=== PATIENT | male | born 1995 | race Caucasian/White ===

== ENCOUNTER 2018-05-14 09:11 | Emergency (ER) | payer MEDICAID, SELFPAY ==
[2018-05-14 09:53] VITALS: BP 123/76; PULSE 96; RESP 16; TEMP 36.7; O2SAT 98
--- NOTE | 2018-05-14 10:30 | W.ED.GENAD ---
Discharge Plan Disposition Patient Disposition: HOME Condition: Fair Discharge Details Chief Complaint: Sorethroat Clinical Impression: URI (upper respiratory infection), Pharyngitis Primary Care Provider: Phoenix Morrissey ED Provider: Maricel Puente Home Meds and New Rx's Prescriptions: Continue polyethylene glycol 3350 255 GM powder 8.5 gm PO DAILY Qty: 255 RF: 2 melatonin 3 MG tablet 4.5 mg PO HS Qty: 90 RF: 1 loratadine 10 MG tablet 10 mg PO DAILY Qty: 90 RF: 1 lamotrigine 100 MG tablet 100 mg PO BID Qty: 180 RF: 4 Discharge Instructions Instructions: Pharyngitis (ED), Upper Respiratory Infection (ED) Additional Instructions: Encourage hydration. Tylenol and/or ibuprofen as needed for discomfort. You may try lozenges or warm water with honey to help with sore throat. If you develop difficulty breathing, shortness of breath, inability to stay hydrated or other new/worsening symptoms please seek care urgently once again. Please follow-up with primary care if not resolved in 1 week. Referrals: Phoenix Morrissey [Primary Care Provider] - Discharge Data Discharge Date/Time-TO BE ENTERED AT DEPARTURE: 05/14/18 10:44 Medical Decision Making Patient is a 22-year-old male, accompanied by caregiver, with chief complaint of sore throat times 2 days. Patient also endorsing rhinorrhea and cough. States the cough has been dry. Denies any shortness of breath or difficulty breathing. Patient appears nontoxic. Posterior oropharynx is significant for some mild erythema. No swelling or exudate. Uvula is midline, no trismus. No swelling of the tongue. Vital signs unremarkable. Patient reports has been afebrile at home. He does appear dry on exam. Patient caregiver reported that he does not drink much fluids during the day. Caregiver was requesting IV bolus while here. However, she reports that he has baseline level of dehydration for the past several years as he does not hydrate frequently. Did not feel at this point that hydrate the patient for intravenous measures is appropriate. I advised rather really trying to encourage the oral hydration wound discussed the importance of this in depth with the patient. Rapid strep tesing performed by nursing staff. This is found to be negative. Discussed these results with the patient and caregiver. He has not had anything as of yet for discomfort. Advised Tylenol and ibuprofen. He was given a dose of ibuprofen while here. Advised that his illness sounds to be viral in nature. Again, encourage hydration. We discussed [id number] home remedies that may help with symptomatic management. We discussed new/worsening symptoms when to seek care urgently once again. Advise follow-up with primary care if not improving the next week. All other questions or concerns were addressed and he is in agreement with this plan HPI General Mode of arrival: ambulatory. Date/Time Provider Initiated Documentation: 05/14/18 10:12. Limitations to Documentation: no limitations. Information obtained by: patient and family (accompanied by healthcare representative). History of Present Illness 22 year old M presents to the emergency department with the chief complaint of sore throat, described as moderate, with intensity rated at 5. Quality is described as aching, and is localized to the mouth. Patient reports no radiation. Patient started experiencing this day(s) (2) and it has been constant. No relieving factors improve symptom(s), Other factors that worsen symptoms (reports pain is worse with swallowing) . Patient notes cough; denies chest pain, fever/chills, headaches, loss of appetite, malaise, nausea/vomiting, rash and shortness of breath. Patient did receive the following treatments prior to arrival, none Related Data Home Medications Medication Instructions Recorded Confirmed polyethylene glycol 3350 8.5 gm PO DAILY #255 gm 01/29/16 05/14/18 melatonin 4.5 mg PO HS #90 tab 07/13/16 05/14/18 loratadine 10 mg PO DAILY #90 tab-cap 09/30/16 05/14/18 lamotrigine 100 mg PO BID #180 tab-cap 12/12/17 05/14/18 Previous Rx's Medication Instructions Recorded lamotrigine 100 mg PO BID #180 tab-cap 12/12/17 Allergies Allergy/AdvReac Type Severity Reaction Status Date / Time bupropion HCl Allergy Severe Unverified 05/14/18 10:01 [From Wellbutrin] shellfish derived Allergy Unverified 05/14/18 10:01 lactose AdvReac diarrhea Unverified 05/14/18 10:01 General Stated Complaint: Sorethroat SEBAS: 4 Review of Systems Constitutional Reports as per HPI Eyes Denies eye discharge and Denies irritation ENT Reports as per HPI, Denies dental pain, Denies vertigo, Denies ear discharge, Denies otalgia, Denies facial pain, Reports nasal congestion, Reports nasal discharge, Denies sinus pain, Denies sinus pressure, Reports sore throat, Denies throat swelling and Denies tongue swelling Cardiovascular Denies chest pain, Denies dyspnea and Denies dyspnea on exertion Respiratory Reports as per HPI, Reports cough (dry cough), Denies pain with cough, Denies dyspnea and Denies dyspnea on exertion Gastrointestinal Denies abdominal pain, Denies change in stool character, Denies nausea and Denies vomiting Integumentary/Breasts Denies rash Neurologic Denies vertigo Allergic/Immunologic Denies throat swelling and Denies tongue swelling [facility] Social History Smoking/Tobacco Use Status: Never Surgical History Circumcision Tooth extraction gynecomastia repair Exam Const General: cooperative, healthy appearing, comfortable, no acute distress, well developed and well groomed Nutritional Appearance: average body habitus and well nourished Orientation: alert and awake [facility] Head: normal to inspection, normocephalic and atraumatic Ears: hearing grossly normal bilaterally, external ears normal and TM's normal bilaterally General nose exam: external nose normal and nares normal Face and sinus: normal facial exam, sinuses nontender and face symmetric Mouth: oral mucosae normal, lip normal, tongue normal, oropharynx abnormals (patient appears dry on exam), no audible dysphonia and no trismus Throat: posterior oropharynx abnormal (mildly erythematous), tonsils normal, uvula midline, uvula not displaced and no uvular edema Eyes General: appearance normal, both eyes and all related structures Neck Neck: normal visual inspection, full ROM, no lymphadenopathy, no meningeal signs, trachea midline and supple Resp Effort & Inspection: normal respiratory effort, able to speak in complete sentences, no audible wheezes, no cough and no respiratory distress Auscultation: clear to auscultation bilaterally, no rales, no rhonchi and no wheezes Cardio Rate: regular rate Rhythm: regular rhythm Heart Sounds: S1 normal and S2 normal Skin General skin exam: no rashes or lesions noted Neuro General: alert and awake Cognition: normal cognition Speech: speech normal Gait: normal gait Psych Appearance: grossly normal and well kempt Mental Status: mental status grossly normal Speech and Movement: speech and movement normal Course Vital Signs Temperature 36.7 C 05/14/18 09:53 Pulse 96 H 05/14/18 09:53 Respiratory Rate 16 05/14/18 09:53 Blood Pressure 123/76 05/14/18 09:53 Pulse Oximetry 98 05/14/18 09:53 Temperature 36.7 C 05/14/18 09:53 Temperature Source Temporal Artery Scan 05/14/18 09:53 Pulse 96 H 05/14/18 09:53 Respiratory Rate 16 05/14/18 09:53 Respiratory Effort Non-Labored 05/14/18 09:57 Blood Pressure 123/76 05/14/18 09:53 Blood Pressure Position Sitting 05/14/18 09:53 Pulse Oximetry 98 05/14/18 09:53 Oxygen Delivery Method Room Air 05/14/18 09:53 Oxygen Flow Rate 0 05/14/18 09:53 Pain Level 5 05/14/18 09:53 Lab/Test Results Lab/Test Results: 05/14/18 09:50 Pharynx Streptococcus Screen (KEE) - Pending POC Strep Test-STORMY(Rapid) Start: 05/14/18 09:52 Freq: .Rapid Strep Test Status: Active Protocol: Document 05/14/18 10:00 GUILLERMO (Rec: 05/14/18 10:00 [facility] [place] [id number]) Strep test-STORMY(Rapid)-POC POC-Strep test-STORMY (Rapid) Negative POC-Strep test-STORMY (Rapid) Negative
[2018-05-14] MEDS: Ibuprofen 600 MG TAB PO (10:39)
--- NOTE | 2018-05-14 10:45 | ED.GENADUL_ITS ---
Discharge Plan Disposition Patient Disposition: HOME Condition: Fair Discharge Details Chief Complaint: Sorethroat Clinical Impression: URI (upper respiratory infection), Pharyngitis Primary Care Provider: Phoenix Morrissey ED Provider: Maricel Puente Home Meds and New Rx's Prescriptions: Continue polyethylene glycol 3350 255 GM powder 8.5 gm PO DAILY Qty: 255 RF: 2 melatonin 3 MG tablet 4.5 mg PO HS Qty: 90 RF: 1 loratadine 10 MG tablet 10 mg PO DAILY Qty: 90 RF: 1 lamotrigine 100 MG tablet 100 mg PO BID Qty: 180 RF: 4 Discharge Instructions Instructions: Pharyngitis (ED), Upper Respiratory Infection (ED) Additional Instructions: Encourage hydration. Tylenol and/or ibuprofen as needed for discomfort. You may try lozenges or warm water with honey to help with sore throat. If you develop difficulty breathing, shortness of breath, inability to stay hydrated or other new/worsening symptoms please seek care urgently once again. Please follow-up with primary care if not resolved in 1 week. Referrals: Phoenix Morrissey [Primary Care Provider] - Discharge Data Discharge Date/Time-TO BE ENTERED AT DEPARTURE: 05/14/18 10:44 Medical Decision Making Patient is a 22-year-old male, accompanied by caregiver, with chief complaint of sore throat times 2 days. Patient also endorsing rhinorrhea and cough. States the cough has been dry. Denies any shortness of breath or difficulty breathing. Patient appears nontoxic. Posterior oropharynx is significant for some mild erythema. No swelling or exudate. Uvula is midline, no trismus. No swelling of the tongue. Vital signs unremarkable. Patient reports has been afebrile at home. He does appear dry on exam. Patient caregiver reported that he does not drink much fluids during the day. Caregiver was requesting IV bolus while here. However, she reports that he has baseline level of dehydration for the past several years as he does not hydrate frequently. Did not feel at this point that hydrate the patient for intravenous measures is appropriate. I advised rather really trying to encourage the oral hydration wound discussed the importance of this in depth with the patient. Rapid strep tesing performed by nursing staff. This is found to be negative. Discussed these results with the patient and caregiver. He has not had anything as of yet for discomfort. Advised Tylenol and ibuprofen. He was given a dose of ibuprofen while here. Advised that his illness sounds to be viral in nature. Again, encourage hydration. We discussed [id number]-[id number] home remedies that may help with symptomatic management. We discussed new/ worsening symptoms when to seek care urgently once again. Advise follow-up with primary care if not improving the next week. All other questions or concerns were addressed and he is in agreement with this plan HPI General Mode of arrival: ambulatory . Date/Time Provider Initiated Documentation: 05/14/18 10:12 . Limitations to Documentation: no limitations . Information obtained by: patient and family (accompanied by manager care management) . History of Present Illness 22 year old M presents to the emergency department with the chief complaint of sore throat, described as moderate, with intensity rated at 5. Quality is described as aching, and is localized to the mouth. Patient reports no radiation. Patient started experiencing this day(s) (2) and it has been constant. No relieving factors improve symptom(s), Other factors that worsen symptoms (reports pain is worse with swallowing) . Patient notes cough ; denies chest pain, fever/chills, headaches, loss of appetite, malaise, nausea/ vomiting, rash and shortness of breath. Patient did receive the following treatments prior to arrival, none Related Data Home Medications Medication Instructions Recorded Confirmed polyethylene glycol 3350 8.5 gm PO DAILY #255 gm 01/29/16 05/14/18 melatonin 4.5 mg PO HS #90 tab 07/13/16 05/14/18 loratadine 10 mg PO DAILY #90 tab-cap 09/30/16 05/14/18 lamotrigine 100 mg PO BID #180 tab-cap 12/12/17 05/14/18 Previous Rx's Medication Instructions Recorded lamotrigine 100 mg PO BID #180 tab-cap 12/12/17 Allergies Allergy/AdvReac Type Severity Reaction Status Date / Time bupropion HCl Allergy Severe Unverified 05/14/18 10:01 [From Wellbutrin] shellfish derived Allergy Unverified 05/14/18 10:01 lactose AdvReac diarrhea Unverified 05/14/18 10:01 General Stated Complaint: Sorethroat SEBAS: 4 Review of Systems Constitutional Reports as per HPI Eyes Denies eye discharge and Denies irritation ENT Reports as per HPI, Denies dental pain, Denies vertigo, Denies ear discharge, Denies otalgia, Denies facial pain, Reports nasal congestion, Reports nasal discharge, Denies sinus pain, Denies sinus pressure, Reports sore throat, Denies throat swelling and Denies tongue swelling Cardiovascular Denies chest pain, Denies dyspnea and Denies dyspnea on exertion Respiratory Reports as per HPI, Reports cough (dry cough), Denies pain with cough, Denies dyspnea and Denies dyspnea on exertion Gastrointestinal Denies abdominal pain, Denies change in stool character, Denies nausea and Denies vomiting Integumentary/Breasts Denies rash Neurologic Denies vertigo Allergic/Immunologic Denies throat swelling and Denies tongue swelling [facility] Social History Smoking/Tobacco Use Status: Never Surgical History Circumcision Tooth extraction gynecomastia repair Exam Const General: cooperative, healthy appearing, comfortable, no acute distress, well developed and well groomed Nutritional Appearance: average body habitus and well nourished Orientation: alert and awake [facility] Head: normal to inspection, normocephalic and atraumatic Ears: hearing grossly normal bilaterally, external ears normal and TM's normal bilaterally General nose exam: external nose normal and nares normal Face and sinus: normal facial exam, sinuses nontender and face symmetric Mouth: oral mucosae normal, lip normal, tongue normal, oropharynx abnormals ( patient appears dry on exam), no audible dysphonia and no trismus Throat: posterior oropharynx abnormal (mildly erythematous), tonsils normal, uvula midline, uvula not displaced and no uvular edema Eyes General: appearance normal, both eyes and all related structures Neck Neck: normal visual inspection, full ROM, no lymphadenopathy, no meningeal signs , trachea midline and supple Resp Effort & Inspection: normal respiratory effort, able to speak in complete sentences, no audible wheezes, no cough and no respiratory distress Auscultation: clear to auscultation bilaterally, no rales, no rhonchi and no wheezes Cardio Rate: regular rate Rhythm: regular rhythm Heart Sounds: S1 normal and S2 normal Skin General skin exam: no rashes or lesions noted Neuro General: alert and awake Cognition: normal cognition Speech: speech normal Gait: normal gait Psych Appearance: grossly normal and well kempt Mental Status: mental status grossly normal Speech and Movement: speech and movement normal Course Vital Signs Temperature 36.7 C 05/14/18 09:53 Pulse 96 H 05/14/18 09:53 Respiratory Rate 16 05/14/18 09:53 Blood Pressure 123/76 05/14/18 09:53 Pulse Oximetry 98 05/14/18 09:53 Temperature 36.7 C 05/14/18 09:53 Temperature Source Temporal Artery Scan 05/14/18 09:53 Pulse 96 H 05/14/18 09:53 Respiratory Rate 16 05/14/18 09:53 Respiratory Effort Non-Labored 05/14/18 09:57 Blood Pressure 123/76 05/14/18 09:53 Blood Pressure Position Sitting 05/14/18 09:53 Pulse Oximetry 98 05/14/18 09:53 Oxygen Delivery Method Room Air 05/14/18 09:53 Oxygen Flow Rate 0 05/14/18 09:53 Pain Level 5 05/14/18 09:53 Lab/Test Results Lab/Test Results: 05/14/18 09:50 Pharynx Streptococcus Screen (KEE) - Pending POC Strep Test-STORMY(Rapid) Start: 05/14/18 09: 52 Freq: .Rapid Strep Test Status: Active Protocol: Document 05/14/18 10:00 GUILLERMO (Rec: 05/14/18 10:00 [facility] [place] [id number]) Strep test-STORMY(Rapid)-POC POC-Strep test-STORMY (Rapid) Negative POC-Strep test-STORMY (Rapid) Negative
== END 2018-05-14 10:44 | disposition home or self-care (01) ==
PROVIDERS: Emergency Provider Physician Assistant; PCP Specialist/Technologist Athletic Trainer
DX: J06.9 Acute upper respiratory infection, unspecified (principal); J02.9 Acute pharyngitis, unspecified; E86.0 Dehydration
CPT/HCPCS: 87880; 99282; 87081

== ENCOUNTER 2019-06-18 00:18 | Outpatient (CLI) | payer MEDICAID, SELFPAY ==
--- NOTE | 2019-06-18 15:20 | NS.NUTBLAN_ITS ---
Assessment: 24 year old male with 65 lbs weight gain in last year with morbid obesity. 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 Lives with care givers that provide meals. Sergio does not cook. Recent weight gain due to excessive calorie intake, as now able to walk to store and buy own snacks. New home environment provides mostly healthy food options. Sergio reports anxiety is trigger for overeating. Intervention: Met wet with Sergio and care taker and reviewed ways to increase exercise and reduce reliance on high fat, high sugar snacks. Sergio is reluctant to reduce snack food intake but is willing to increase his activity. Has stepper on phone and will track steps daily with goal of 7500 steps daily. Reviewed importance of discontinuing reliance on soda and juice and to switch to non calorie beverages. Sergio also to replace snack foods with healthier options, list provided. Reviewed risks of morbid obesity with family history of diabetes. Plan: Reduce reliance on high sugar beverages and high fat, high salt and high sugar snack foods. Recommended follow up monthly but Sergio declined at this time. seen by Princess Maloney MS,RD face to face: 30 minutes billed to [facility]
== END 2019-06-18 00:38 ==
PROVIDERS: PCP Family Medicine; Visit Provider Dietitian, Registered
DX: E66.2 Morbid (severe) obesity with alveolar hypoventilation (principal); Z71.3 Dietary counseling and surveillance
CPT/HCPCS: 97802

== ENCOUNTER 2021-06-19 01:17 | Outpatient (CLI) | payer MEDICAID, SELFPAY ==
[2021-06-19 10:47] LABS: Anion Gap 7.4 mmol/L (3-11); BUN 14 mg/dL (7-18); CO2 29.6 mmol/L (21.0-32.0); Chloride 104 mmol/L (98-107); Glucose 84 mg/dL (74-106); Potassium 4.3 mmol/L (3.5-5.1); Sodium 141 mmol/L (136-145)
== END 2021-06-19 01:18 | disposition home or self-care (01) ==
LOC: LBO 01:17
PROVIDERS: PCP Family Medicine; Visit Provider Family Medicine
DX: Z83.3 Family history of diabetes mellitus (principal)
CPT/HCPCS: 36415; 80048

== ENCOUNTER 2022-07-27 21:56 | Outpatient (CLI) | payer MEDICAID, SELFPAY ==
--- NOTE | 2022-07-27 | DI.RAD_ITS ---
Exam(s) XR WRIST RT COMPLETE EXAM: XR WRIST RT COMPLETE CLINICAL HISTORY: RT ARM PAIN, M79.601, RT DISTAL PAIN, POST FALL YESTERDAY. TECHNIQUE: 2D digital imaging was performed. COMPARISON: No exams were available for comparison FINDINGS: 3 views No evidence of acute fracture nor carpal dislocation. Slight increased interosseous distance within the scaphoid and lunate noted, possibly significant. No significant ulnar variance. Bone density normal. No osseous lesions IMPRESSION: Increased intraosseous distance between the scaphoid and lunate which may indicate interosseous ligam ent injury. If clinically indicated follow-up MRI can be performed. DATA REPOSITORY: RADIATION DOSE DELIVERED:
--- NOTE | 2022-07-27 | DI.RAD_ITS ---
Exam(s) XR FOREARM RT EXAM: XR FOREARM RT CLINICAL HISTORY: RT ARM PAIN, M79.601, RT DISTAL PAIN, POST FALL YESTERDAY. TECHNIQUE: 2D digital imaging was performed. COMPARISON: No exams were available for comparison FINDINGS: Two views: No evidence of fracture. Distally there appears to be increased scapholunate distance which may piero juan inter osseous ligament injury at this level. No fractures in the forearm bones evident. IMPRESSION: Increased interosseous distance between the scaphoid and lunate bones of the wrist. Correlation with site of tenderness is recommended. This may indicate injury of the scapholunate ligament at this le doni. There are no fractures seen. DATA REPOSITORY: RADIATION DOSE DELIVERED:
== END 2022-07-27 22:16 ==
LOC: DI 21:56
PROVIDERS: PCP Family Medicine; Visit Provider Nurse Practitioner Family
DX: M79.601 Pain in right arm (principal)
CPT/HCPCS: 73090; 73110

== ENCOUNTER 2022-10-15 17:06 | Outpatient (REF) | payer MEDICAID, SELFPAY | END 2022-10-15 17:07 | disposition home or self-care (01) | LOC: LBN 17:06 | PROVIDERS: PCP Family Medicine; Visit Provider Family Medicine | DX: K90.9 Intestinal malabsorption, unspecified (principal) | CPT/HCPCS: 87329; 82710 ==

== ENCOUNTER 2024-07-12 11:39 | Outpatient (CLI) | payer MEDICAID, SELFPAY ==
--- NOTE | 2024-07-12 11:48 | DI.RAD_ITS ---
Exam(s) XR CHEST 2V PA LATERAL EXAM: XR CHEST 2V PA LATERAL CLINICAL HISTORY: R05.9 cough x3 weeks, rule out infiltrate. TECHNIQUE: 2D digital imaging was performed. COMPARISON: No exams were available for comparison FINDINGS: 2 views: Heart size is normal. The mediastinum is not widened. Lungs are clear. No infiltrates nor pleural effusions. IMPRESSION: No acute pulmonary findings. DATA REPOSITORY: RADIATION DOSE DELIVERED:
== END 2024-07-12 11:59 ==
PROVIDERS: PCP Family Medicine; Visit Provider Family Medicine
DX: R05.9 Cough, unspecified (principal)
CPT/HCPCS: 71046

== ENCOUNTER 2025-03-15 08:49 | Outpatient (CLI) | payer MEDICAID, SELFPAY ==
[2025-03-15 09:04] LABS: ALT 29 U/L (16-63); AST 12 U/L (15-37); Albumin 3.4 g/dL (3.4-5.0); Alkaline Phosphatase 97 U/L (46-116); Anion Gap 7.3 mmol/L (3-11); BUN 12 mg/dL (7-18); Bilirubin, Total 0.4 mg/dL (0.2-1.0); CO2 28.7 mmol/L (21.0-32.0); Calcium 9.2 mg/dL (8.5-10.1); Calculated LDL 155 mg/dL (<100); Chloride 103 mmol/L (98-107); Cholesterol 249 mg/dL (<200); Estimated GFR 124.40 (mL/min/1.73m2); HDL Cholesterol 34 mg/dL (>or=40); Potassium 4.1 mmol/L (3.5-5.1); Sodium 139 mmol/L (136-145); TSH (W/Ref FT4) 1.46 uIU/mL (0.36-3.74); Total Protein 7.5 g/dL (6.4-8.2); Triglyceride 303 mg/dL (<150)
[2025-03-15 09:18] LABS: Glucose 96 mg/dL (74-106)
== END 2025-03-15 08:50 | disposition home or self-care (01) ==
LOC: LBO 08:53
PROVIDERS: PCP Family Medicine; Visit Provider Family Medicine
DX: E66.01 Morbid (severe) obesity due to excess calories (principal)
CPT/HCPCS: 36415; 80053; 80061; 84443